=== PATIENT | female | born 1960 | race Caucasian/White ===

== ENCOUNTER 2017-03-18 17:32 | Observation (INO) ==
[2017-03-18] MEDS ORDERED: 0.9 % Sodium Chloride 1,000 ML IVC ONE (19:34)
--- NOTE | 2017-03-18 19:39 | Emergency Department Note ---
Disposition Clinical Impression: Intoxication, Suicidal ideation Disposition: Admitted As Inpatient Condition: Critical Time of Disposition: 21:17 General Adult HPI - General Chief complaint: ED General Medical Stated complaint: Not feeling well Time Seen by Provider: 03/18/17 19:29 Source: patient, EMS Limitations: no limitations Nursing Notes Reviewed: Yes Vital Signs Reviewed: Yes - History of Present Illness HPI Narrative: Ms. Pineda, 57-year-old female, arrives from home via EMS with chief complaint of, "not feeling well." When asked what brought her to the emergency department patient repeats, "I am not feeling well." She arrived by EMS. When asked, patient states that she called EMS. ROS: Denies nausea, vomiting, fever, chills, chest pains, back pains, palpitations, abdominal pains, fatigue, weakness, trauma, dizziness, confusion, changes in vision. Admits to depression Patient admits that she drank a fifth of vodka today and wishes she could be sick. As she opens up, patient says she feels sad with loss of interest in friends and hobbies. She has been sleeping excessively. She denies suicidality or homicidality. States that she has a seven-year history of alcoholism. Denies other substances. Denies tobacco dependence. Patient notes she sees a therapist in [place] for depression. PMH: Hypertension, depression, alcoholism Pain Scale: 0 - Related Data Home Medications Medication Instructions Recorded Confirmed Acamprosate Calcium 333 mg PO TID 07/30/16 03/18/17 FLUoxetine HCl [Prozac] 60 mg PO DAILY 07/30/16 03/18/17 Gabapentin [Neurontin] 600 mg PO TID 07/30/16 03/18/17 Losartan/Hydrochlorothiazide 1 each PO DAILY 07/30/16 03/18/17 [Hyzaar 100-25 Tablet] Sulindac 150 mg PO BID PRN 07/30/16 03/18/17 Tizanidine HCl [Zanaflex] 4 mg PO TID PRN 07/30/16 03/18/17 cloNIDine HCl [Clonidine HCl] 0.2 mg PO BID 07/30/16 03/18/17 Albuterol Sulfate [Albuterol 2 puff IH Q6H PRN 03/18/17 03/18/17 Inhaler] Metoprolol [Lopressor] 25 mg PO BID 03/18/17 03/18/17 Zolmitriptan [Zomig] 5 mg PO DAILY PRN 03/18/17 03/18/17 hydrOXYzine pamoate [HydrOXYzine 50 mg PO QID PRN 03/18/17 03/18/17 Pamoate] Allergies Allergy/AdvReac Type Severity Reaction Status Date / Time Sulfa (Sulfonamide Allergy Hives Verified 03/18/17 17:38 Antibiotics) All systems ED: reviewed and negative except as stated. Past Medical History - Past Medical History Medical history: Reports: arthritis, hypertension, other Surgical history: Reports: appendectomy, other Psychiatric history: Reports: anxiety, depression [employer] history: Reports: no [employer] history - Social History Smoking Status: Current every day smoker Smokeless Tobacco Status: No Alcohol use: Reports: none Drug use: Reports: none Physical Exam Vital Signs Reviewed General: Patient is alert, oriented, and in no acute respiratory distress but is in mild emotional distress-she keeps her eyes closed and is crying. Appears well. HEENT: No facial asymmetry. Head is normocephalic and atraumatic. PERRLA, EOMI. oral mucosa moist. Trachea midline. Cardiovascular: Heart regular rate and rhythm without clicks, rubs, gallops, or murmurs. No JVD. PMI nondisplaced. Respiratory: Symmetric chest rise with poor respiratory effort. Bilateral breath sounds are clear without wheezing, crackles, or rhonchi. Abdomen: Obese. Bowel sounds present normoactive x-4 quadrants. Abdomen is soft, nondistended, and nontender. No organomegaly noted. Psych: Patient's affect is appropriate for situation. - General Limitations: no limitations General appearance: alert, in no apparent distress - Head Head exam: atraumatic, normocephalic - Chest Chest inspection: Present: normal inspection, symmetric chest wall rise - Respiratory Respiratory exam: Present: normal lung sounds bilaterally. Absent: respiratory distress, wheezes - Cardiovascular Cardiovascular exam: Present: regular rate, normal rhythm, normal heart sounds - Abdominal Exam Abdominal exam: Present: soft, Non-Tender, normal bowel sounds - Extremities Exam Extremities exam: Present: normal inspection, full ROM - Back Exam Back exam: Present: normal inspection. Absent: CVA tenderness (R), CVA tenderness (L) - Neurological Exam Neurological exam: Present: alert, oriented X3. Absent: motor sensory deficit - Psychiatric Psychiatric exam: Present: suicidal ideation - Skin Skin exam: Present: warm, dry, intact, normal color. Absent: cyanosis, diaphoresis Course Course Narrative: Patient initially placed in room 21. Have requested patient is moved to more appropriate for potential psychiatric patient. 19:54 Spoke with nursing. Patient admitted to nursing that she is sad, lonely, depressed, does not want to live. EtOH elevated at 330. Patient is able to self ambulate to the restroom without ataxia. Spoke with one day who will not see the patient until she is medically cleared; until her EtOH is below the limits. Spoke with admitting hospitalist, Dr. An, who agrees to accept the patient for continued monitoring. Vital Signs Temperature 97.4 F L 03/18/17 17:38 Pulse Rate 80 03/18/17 17:38 Respiratory Rate 15 03/18/17 17:38 Blood Pressure 130/74 03/18/17 17:38 O2 Sat by Pulse Oximetry 94 03/18/17 17:38 Temperature 97.4 F L 03/18/17 17:38 Pulse Rate 80 03/18/17 17:38 Respiratory Rate 15 03/18/17 17:38 Blood Pressure 130/74 03/18/17 17:38 O2 Sat by Pulse Oximetry 94 03/18/17 17:38 Oxygen Delivery Oxygen Delivery Room Air Medical Decision Making - Lab Data Lab results reviewed: Yes I reviewed the patient's lab results. Result diagrams: 03/18/17 19:42 03/18/17 19:42 Lab Results 03/18/17 03/18/17 03/18/17 Range/Units 19:42 19:42 19:54 WBC 6.5 (4.3-11.1) K/mcL RBC 4.99 H (3.82-4.97) M/mcL Hgb 15.6 H (11.5-15.4) g/dL Hct 45.8 H (35.3-44.9) % MCV 91.8 (83.0-100.0) fL MCH 31.3 (28.0-33.3) pg MCHC 34.1 (31.6-35.5) g/dL RDW 14.4 (11.5-14.5) % Plt Count 373 (140-400) K/mcL MPV 8.7 L (9.4-12.4) fL Immature Gran % 0.2 (0-4) % Seg Neutrophils % 75.0 % Lymphocytes % 21.6 % Monocytes % 2.3 % Eosinophils % 0.0 % Basophils % 0.9 % Neutrophils # 4.9 (1.6-8.9) K/mcL Lymphocytes # 1.4 (0.6-4.6) K/mcL Monocytes # 0.2 (0.0-1.3) K/mcL Eosinophils # 0.0 (0.0-0.6) K/mcL Basophils # 0.1 (0.0-0.2) K/mcL Sodium 137 (136-145) mEq/L Potassium 4.2 (3.5-4.5) mEq/L Chloride 96 L (98-109) mEq/L Carbon Dioxide 19 (19-29) mEq/L BUN 29 H (7-20) mg/dL Creatinine 1.28 H (0.57-1.11) mg/dL Est GFR ( Amer) 52 L (> 60) Est GFR (Non-Af Amer) 43 L (> 60) BUN/Creatinine Ratio 23 (6-26) Glucose 67 L (70-99) mg/dL POC Glucose 65 (58-89) Calculated Osmolality 288 (280-300) Calcium 9.4 (8.6-10.8) mg/dL Total Bilirubin 0.4 (0.2-1.2) mg/dL Direct Bilirubin 0.2 (0.0-0.5) mg/dL Indirect Bilirubin 0.2 (0.0-1.2) mg/dL AST 36 H (5-34) Units/L ALT 29 (0-55) Units/L Alkaline Phosphatase 88 (38-126) Units/L Serum Total Protein 8.9 H (6.0-8.3) g/dL Albumin 4.1 (3.5-5.0) g/dL Globulin 4.8 H (2.4-3.5) g/dL Albumin/Globulin Ratio 0.9 L (1.1-2.2) Urine Color (Yellow) Urine Clarity (Clear) Urine pH (5.0-8.0) pH Units Ur Specific Preston (1.010-1.025) Urine Protein (Neg-Trace) mg/dL Urine Glucose (UA) (Normal) mg/dL Urine Ketones (Negative) mg/dL Urine Blood (Negative) Urine Nitrite (Negative) Urine Bilirubin (Negative) Urine Urobilinogen (Normal) mg/dL Ur Leukocyte Esterase (Negative) Urine Microscopic RBC (0-3) per hpf Urine Microscopic WBC (0-3) per hpf Ur Squamous Epith Cells (None-Few) per lpf Urine Bacteria (None-Few) per hpf Hyaline Casts (None-Few) per lpf Urine Test (Negative) Salicylates < 5.0 L (15-30) mg/dL Urine Opiates Screen (Gihvmq=327) ng/mL Acetaminophen < 1.0 L (10-30) mcg/mL Ur Barbiturates Screen (Evitmd=546) ng/mL Ur Phencyclidine Scrn (Cutoff=25) ng/mL Ur Amphetamines Screen (Jnpghl=9489) ng/mL U Benzodiazepines Scrn (Ifthkk=944) ng/mL Urine Cocaine Screen (Cutoff= 300) ng/mL U Marijuana (THC) Screen (Cutoff = 50) ng/mL Ethyl Alcohol 330 H (0-10) mg/dL 03/18/17 03/18/17 03/18/17 Range/Units 20:02 20:02 20:02 WBC (4.3-11.1) K/mcL RBC (3.82-4.97) M/mcL Hgb (11.5-15.4) g/dL Hct (35.3-44.9) % MCV (83.0-100.0) fL MCH (28.0-33.3) pg MCHC (31.6-35.5) g/dL RDW (11.5-14.5) % Plt Count (140-400) K/mcL MPV (9.4-12.4) fL Immature Gran % (0-4) % Seg Neutrophils % % Lymphocytes % % Monocytes % % Eosinophils % % Basophils % % Neutrophils # (1.6-8.9) K/mcL Lymphocytes # (0.6-4.6) K/mcL Monocytes # (0.0-1.3) K/mcL Eosinophils # (0.0-0.6) K/mcL Basophils # (0.0-0.2) K/mcL Sodium (136-145) mEq/L Potassium (3.5-4.5) mEq/L Chloride (98-109) mEq/L Carbon Dioxide (19-29) mEq/L BUN (7-20) mg/dL Creatinine (0.57-1.11) mg/dL Est GFR ( Amer) (> 60) Est GFR (Non-Af Amer) (> 60) BUN/Creatinine Ratio (6-26) Glucose (70-99) mg/dL POC Glucose (58-89) Calculated Osmolality (280-300) Calcium (8.6-10.8) mg/dL Total Bilirubin (0.2-1.2) mg/dL Direct Bilirubin (0.0-0.5) mg/dL Indirect Bilirubin (0.0-1.2) mg/dL AST (5-34) Units/L ALT (0-55) Units/L Alkaline Phosphatase (38-126) Units/L Serum Total Protein (6.0-8.3) g/dL Albumin (3.5-5.0) g/dL Globulin (2.4-3.5) g/dL Albumin/Globulin Ratio (1.1-2.2) Urine Color Yellow (Yellow) Urine Clarity Cloudy A (Clear) Urine pH 5.5 (5.0-8.0) pH Units Ur Specific Preston 1.017 (1.010-1.025) Urine Protein Negative (Neg-Trace) mg/dL Urine Glucose (UA) Normal (Normal) mg/dL Urine Ketones 15 H (Negative) mg/dL Urine Blood Trace H (Negative) Urine Nitrite Negative (Negative) Urine Bilirubin Negative (Negative) Urine Urobilinogen Normal (Normal) mg/dL Ur Leukocyte Esterase Negative (Negative) Urine Microscopic RBC 5-15 H (0-3) per hpf Urine Microscopic WBC 0-3 (0-3) per hpf Ur Squamous Epith Cells Many H (None-Few) per lpf Urine Bacteria None Seen (None-Few) per hpf Hyaline Casts None Seen (None-Few) per lpf Urine Test Negative (Negative) Salicylates (15-30) mg/dL Urine Opiates Screen Negative (Pmjemf=484) ng/mL Acetaminophen (10-30) mcg/mL Ur Barbiturates Screen Negative (Mszxkj=693) ng/mL Ur Phencyclidine Scrn Negative (Cutoff=25) ng/mL Ur Amphetamines Screen Negative (Peffec=3225) ng/mL U Benzodiazepines Scrn Negative (Dmohby=004) ng/mL Urine Cocaine Screen Negative (Cutoff= 300) ng/mL U Marijuana (THC) Screen Negative (Cutoff = 50) ng/mL Ethyl Alcohol (0-10) mg/dL Attestation Statement - Attestation Attestation: I, Alexandr Dior MD, personally evaluated this patient and discussed their management with the resident physician. I reviewed the resident's note and agree with the documented findings, medical decision making, and plan of care. 57-year-old female presents to the emergency department with a complaint of just not feeling well. No specific medical complaints. Patient admits to drinking a fifth of vodka today. She admits to drinking alcohol daily and states that she is an alcoholic. She also later admitted to filling suicidal and just wants to . On examination patient is a well-developed well-nourished female in no acute distress. She is alert and oriented 3. There is no cyanosis or diaphoresis. Breath sounds are clear and equal bilaterally. Heart regular rate and rhythm. Abdomen soft and nontender with normal bowel sounds. No gross focal neurological deficits. Labs reviewed. EtOH 330. The hospitalist, Dr. Velasquez, was consulted and accepted admission of the patient.
[2017-03-18 19:58] LABS: Basophils # 0.1 K/mcL (0.0-0.2); Basophils % 0.9 %; Hematocrit 45.8 % (35.3-44.9); Hemoglobin 15.6 g/dL (11.5-15.4); Immature Granulocytes % 0.2 % (0-4); Lymphocytes # 1.4 K/mcL (0.6-4.6); Lymphocytes % 21.6 %; Mean Corpuscular HGB Conc 34.1 g/dL (31.6-35.5); Mean Corpuscular Hemoglobin 31.3 pg (28.0-33.3); Mean Corpuscular Volume 91.8 fL (83.0-100.0); Mean Platelet Volume 8.7 fL (9.4-12.4); Monocytes # 0.2 K/mcL (0.0-1.3); Monocytes % 2.3 %; Neutrophils # 4.9 K/mcL (1.6-8.9); Platelet Count 373 K/mcL (140-400); Red Blood Count 4.99 M/mcL (3.82-4.97); Red Cell Distribution Width 14.4 % (11.5-14.5)
[2017-03-18 20:12] LABS: Alanine Aminotransferase 29 Units/L (0-55); Albumin 4.1 g/dL (3.5-5.0); Albumin/Globulin Ratio 0.9 (1.1-2.2); Alkaline Phosphatase 88 Units/L (38-126); Aspartate Amino Transferase 36 Units/L (5-34); BUN/Creatinine Ratio 23 (6-26); Bilirubin,Direct 0.2 mg/dL (0.0-0.5); Bilirubin,Indirect 0.2 mg/dL (0.0-1.2); Bilirubin,Total 0.4 mg/dL (0.2-1.2); Blood Urea Nitrogen 29 mg/dL (7-20); Calcium 9.4 mg/dL (8.6-10.8); Carbon Dioxide 19 mEq/L (19-29); Chloride 96 mEq/L (98-109); Ethanol 330 mg/dL (0-10); Globulin 4.8 g/dL (2.4-3.5); Glucose 67 mg/dL (70-99); Osmolality,Calculated 288 (280-300); Potassium 4.2 mEq/L (3.5-4.5); Sodium 137 mEq/L (136-145); Total Protein 8.9 g/dL (6.0-8.3); eGFR For African Americans 52 (> 60); eGFR For Non-African Americans 43 (> 60)
[2017-03-18 20:19] LABS: Acetaminophen < 1.0 mcg/mL (10-30); Salicylate < 5.0 mg/dL (15-30)
[2017-03-18 20:19] LABS: Bilirubin,Urine Negative (Negative); Blood,Urine Trace (Negative); Clarity,Urine Cloudy (Clear); Color,Urine Yellow (Yellow); Glucose,Urine (UA) Normal (Normal); Ketones,Urine 15 mg/dL (Negative); Leukocyte Esterase,Urine Negative (Negative); Nitrite,Urine Negative (Negative); PH,Urine 5.5 pH Units (5.0-8.0); Protein,Urine Negative (Neg-Trace); Specific Gravity,Urine 1.017 (1.010-1.025); Urobilinogen,Urine Normal (Normal)
[2017-03-18 20:20] LABS: Bacteria,Urine None Seen per hpf (None-Few); Hyaline Casts,Urine None Seen per lpf (None-Few); Squamous Epithelial Cell,Urine Many per lpf (None-Few); WBC,Urine 0-3 per hpf (0-3)
[2017-03-18 20:26] LABS: Amphetamine Screen,Urine Negative ng/mL (Cutoff=1000); Barbiturate Screen,Urine Negative ng/mL (Cutoff=200); Benzodiazepines Screen,Urine Negative ng/mL (Cutoff=200); Cannabinoid Screen,Urine Negative ng/mL (Cutoff = 50); Cocaine Screen,Urine Negative ng/mL (Cutoff= 300); Opiate Screen,Urine Negative ng/mL (Cutoff=300); Phencyclidine Screen,Urine Negative ng/mL (Cutoff=25)
[2017-03-18] MEDS ORDERED: *HR* Dextrose 50 % in Water (Syg) 50 ML SYRINGE IVP ONE (21:15)
[2017-03-18] MEDS: Ondansetron 4 MG/2 ML VIAL IVP ONE ×2 (22:04→22:07)
[2017-03-18] MEDS ORDERED: Ondansetron 4 MG/2 ML VIAL ONE (22:04)
--- NOTE | 2017-03-18 22:19 | Internal Med History&Physical ---
Date of Encounter: 03/18/17 Time of Encounter: 22:18 Assessment and Plan (1) Intoxication Current visit: Yes Status: Acute patient with a history of depression who sees a counselor on the outpatient and a heavy alcohol use history comes in with vague symptoms and found to be intoxicated, she is being admitted for monitoring, she denies any prior admissions for alcohol withdrawal we will monitor, replace electrolytes and monitor for withdrawal (2) Depression Current visit: Yes Status: Chronic she is depressed and this may be driving her drinking habit, she currently has no suicidal or homicidal ideation, we will consider morning discharge home if stable Qualifiers: Depression Type: major depressive disorder Major depression recurrence: recurrent Active/Remission status: currently active Major depression episode severity: moderate Qualified Code(s): F33.1 - Major depressive disorder, recurrent, moderate (3) Migraine Current visit: Yes Status: Chronic will continue her home medications Qualifiers: Migraine type: without aura Status migrainosus presence: without status migrainosus Intractability: not intractable Qualified Code(s): G43.009 - Migraine without aura, not intractable, without status migrainosus (4) HTN (hypertension) Current visit: Yes Status: Chronic will continue her home medications with BP monitoring Qualifiers: Hypertension type: essential hypertension Qualified Code(s): I10 - Essential (primary) hypertension (5) Chronic low back pain Current visit: Yes Status: Chronic will continue home pain regimen Qualifiers: Back pain laterality: midline Sciatica presence: without sciatica Qualified Code(s): M54.5 - Low back pain; G89.29 - Other chronic pain (6) CKD (chronic kidney disease) stage 3, GFR 30-59 ml/min Current visit: Yes Status: Chronic seems to be stable, will avoid nephrotoxins, renally dose all medications and follow [facility]PM Internal Medicine - H&P: HPI Chief complaint: feeling unwell Admitted From: Emergency Dept Plans for Post Hospital Care: Home History of present illness: Ms. Pineda is a 57 year old female with a history of alcohol abuse ongoing for about 10 years now was brought in via [facility] to the ER of [place]. She reports that she was drinking today and felt depressed, felt sick to her stomach with nausea but could not vomit. She reports that she has lost interest in things she previously enjoyed and that alcohol gives her some form of escape. She was in this state today until she called [facility] because she just felt "unwell". She denies any prior withdrawal symptoms, no seizures, she reports that she can go for about 10 days without drinking alcohol and have no problems. She denies suicidal or homicidal ideation. Past Med Surg Social Fam HX - Past Medical History Medical history: arthritis, asthma, hypertension, migraine, renal disease (CKD stage 3), other (cervical spinal stenosis, post laminectomy syndrome, carpal tunnel syndrome, chronic pain syndrome, osteoarthritis) Psychiatric history: anxiety, depression - Past Surgical History Surgical History: appendectomy, other (lumbar laminectomy with fusion) - Social History Smoking Status: Current every day smoker Packs per day: 1ppd for >40 years and does not plan to quit Smokeless Tobacco Status: No Alcohol use: none, heavy (about a 5th of Vodka daily for >10 years now) Drug use: none 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[place]) Current living situation: Home - Independent Activity Level: Independent ambulation Additional social history: she is with no children and lives alone on a [address] property - Family History Mother Living Status: Still Living Hx Family Medical Disorders: Yes (HTN) Father Living Status: Hx Family Cardiac Disorders: Yes Hx Family Medical Disorders: Yes (HTN) - Additional Family History Additional family history: father is , he had HTN/CHF/spinal canal stenosis, mother has HTN Internal Medicine - H&P: Meds Acamprosate Calcium 333 mg PO TID 07/30/16 [History] FLUoxetine HCl [Prozac] 60 mg PO DAILY 07/30/16 [History] Gabapentin [Neurontin] 600 mg PO TID 07/30/16 [History] Losartan/Hydrochlorothiazide [Hyzaar 100-25 Tablet] 1 each PO DAILY 07/30/16 [ History] Sulindac 150 mg PO BID PRN 07/30/16 [History] Tizanidine HCl [Zanaflex] 4 mg PO TID PRN 07/30/16 [History] cloNIDine HCl [Clonidine HCl] 0.2 mg PO BID 07/30/16 [History] Albuterol Sulfate [Albuterol Inhaler] 2 puff IH Q6H PRN 03/18/17 [History] Metoprolol [Lopressor] 25 mg PO BID 03/18/17 [History] Zolmitriptan [Zomig] 5 mg PO DAILY PRN 03/18/17 [History] hydrOXYzine pamoate [HydrOXYzine Pamoate] 50 mg PO QID PRN 03/18/17 [History] Allergies Sulfa (Sulfonamide Antibiotics) Allergy (Verified 03/18/17 17:38) Hives All Systems PM: A 10-system review of systems was performed and is negative for pertinent findings except as documented above in the HPI. - Constitutional Vitals: Temp Pulse Resp BP Pulse Ox 97.4 F L 99 20 136/78 98 03/18/17 17:38 03/18/17 21:47 03/18/17 21:49 03/18/17 21:49 03/18/17 21:47 PHYSICAL EXAMINATION: GENERAL: Adult female, lying in bed with no sign of pain or distress, Alert, face if flushed HEENT: NC/AT, EOMI, PERRLA, anicteric sclera, normal conjunctiva, supple, clear nares, moist mucous membranes, RESP: lungs are clear to auscultation bilaterally, no crackles or wheeze noted CARDIO: normal heart sounds with no murmur, no JVD, GI: Soft, full, no tenderness, no organomegaly felt, normal bowel sounds heard MUSCULOSKELETAL: normal findings with no cyanosis or deformities NEUROLOGIC: CN 2-12 intact grossly. No motor/sensory deficit appreciated, PSYCHIATRY: AAO x 3, mood is depressed SKIN: no rash except for facial flushing Internal Med - H&P Results - Labs CBC & Chem 7: 03/18/17 19:42 03/18/17 19:42 - Diagnostic Studies Chest x-ray Status: image reviewed by me
[2017-03-18] MEDS ORDERED: Naloxone 0.4 MG/ML INJ IVP PRN (23:20)
[2017-03-18] MEDS ORDERED: Ondansetron 4 MG/2 ML VIAL IVP PRN (23:20)
[2017-03-18] MEDS ORDERED: hydrOXYzine pamoate 25 MG CAPSULE PO PRN (23:21)
[2017-03-18] MEDS ORDERED: tiZANidine 4 MG TABLET PO PRN (23:21)
[2017-03-18] MEDS ORDERED: ZOMIG 5MG PO PRN (23:21)
[2017-03-18] MEDS: Gabapentin 300 MG CAPSULE PO SCH (23:46)
[2017-03-18] MEDS: cloNIDine HCl 0.1 MG TABLET PO SCH (23:46)
[2017-03-18] MEDS: ACAMPROSATE CALCIUM 333 MG PO SCH (23:46)
[2017-03-19 05:09] LABS: Basophils # 0.1 K/mcL (0.0-0.2); Basophils % 0.7 %; Hematocrit 36.4 % (35.3-44.9); Immature Granulocytes % 0.3 % (0-4); Lymphocytes # 1.7 K/mcL (0.6-4.6); Lymphocytes % 22.7 %; Mean Corpuscular HGB Conc 34.3 g/dL (31.6-35.5); Mean Corpuscular Hemoglobin 31.5 pg (28.0-33.3); Mean Corpuscular Volume 91.7 fL (83.0-100.0); Mean Platelet Volume 8.8 fL (9.4-12.4); Monocytes # 0.7 K/mcL (0.0-1.3); Monocytes % 9.1 %; Neutrophils # 5.1 K/mcL (1.6-8.9); Platelet Count 292 K/mcL (140-400); Red Blood Count 3.97 M/mcL (3.82-4.97); Red Cell Distribution Width 14.4 % (11.5-14.5); Segmented Neutrophils % 67.2 %
[2017-03-19 05:18] LABS: BUN/Creatinine Ratio 23 (6-26); Blood Urea Nitrogen 23 mg/dL (7-20); Calcium 8.5 mg/dL (8.6-10.8); Carbon Dioxide 20 mEq/L (19-29); Chloride 103 mEq/L (98-109); Glucose 96 mg/dL (70-99); Magnesium 1.8 mg/dL (1.6-2.6); Osmolality,Calculated 286 (280-300); Phosphorous 2.8 mg/dL (2.3-4.7); Potassium 4.3 mEq/L (3.5-4.5); Sodium 136 mEq/L (136-145); eGFR For African Americans > 60 (> 60); eGFR For Non-African Americans 55 (> 60)
[2017-03-19 05:27] LABS: Hemoglobin 12.5 g/dL (11.5-15.4)
[2017-03-19 07:33] VITALS: BP 158/90
[2017-03-19] MEDS: ACAMPROSATE CALCIUM 333 MG PO SCH (08:54)
[2017-03-19] MEDS: cloNIDine HCl 0.1 MG TABLET PO SCH (08:54)
[2017-03-19] MEDS: Gabapentin 300 MG CAPSULE PO SCH (08:54)
[2017-03-19] MEDS ORDERED: Losartan/HCTZ 50-12.5 TABLET PO SCH (09:00)
[2017-03-19] MEDS ORDERED: FLUoxetine 20 MG CAPSULE PO SCH (09:00)
--- NOTE | 2017-03-19 09:47 | Discharge Summary ---
Date of Encounter: 03/19/17 Time of Encounter: 09:40 - Discharge Diagnosis (1) Intoxication Priority: Primary Status: Acute Comments: Patient states that she drinks at least 750 mL's of vodka or tequila daily for the last 10 years. She said that she was drinking a normal amount yesterday and said that she "did not feel right". She was actually unable to quantify this statement and could not describe any specific feeling or pain that she was having. She said that she had not eaten all day when she arrived at the emergency department her blood sugar was 66. She states that she has not interested in any resources to stop drinking at this time. (2) Chronic low back pain Priority: Secondary Status: Chronic Comments: Chronic. Continue home medications. Qualifiers: Back pain laterality: midline Sciatica presence: without sciatica Qualified Code(s): M54.5 - Low back pain; G89.29 - Other chronic pain (3) HTN (hypertension) Priority: Secondary Status: Chronic Comments: Chronic. Continue home medications. Well controlled in inpatient setting. Qualifiers: Hypertension type: essential hypertension Qualified Code(s): I10 - Essential (primary) hypertension (4) Migraine Priority: Secondary Status: Chronic Comments: Chronic. Continue home medications. Qualifiers: Migraine type: without aura Status migrainosus presence: without status migrainosus Intractability: not intractable Qualified Code(s): G43.009 - Migraine without aura, not intractable, without status migrainosus (5) Depression Priority: Secondary Status: Chronic Comments: Chronic. Continue home medications. Patient states that she does see a counselor weekly at [facility] in [place]. She denies needing any additional assistance or resources. Qualifiers: Depression Type: major depressive disorder Major depression recurrence: recurrent Active/Remission status: currently active Major depression episode severity: moderate Qualified Code(s): F33.1 - Major depressive disorder, recurrent, moderate (6) CKD (chronic kidney disease) stage 3, GFR 30-59 ml/min Priority: Secondary Status: Chronic Comments: BUN 23, creatinine 1.02, GFR 55. Stable and improved Avoid nephrotoxins and NSAIDs (7) Tobacco abuse Priority: Secondary Status: Chronic Comments: Patient smokes approximately 1 pack a day for the last 40 years. She is not interested in smoking, and she is not interested in any smoking cessation materials or tools at this time. - Discharge Medications Home Medications: Acamprosate Calcium 333 mg PO TID 07/30/16 [History] FLUoxetine HCl [Prozac] 60 mg PO DAILY 07/30/16 [History] Gabapentin [Neurontin] 600 mg PO TID 07/30/16 [History] Losartan/Hydrochlorothiazide [Hyzaar 100-25 Tablet] 1 each PO DAILY 07/30/16 [ History] Sulindac 150 mg PO BID PRN 07/30/16 [History] Tizanidine HCl [Zanaflex] 4 mg PO TID PRN 07/30/16 [History] cloNIDine HCl [Clonidine HCl] 0.2 mg PO BID 07/30/16 [History] Albuterol Sulfate [Albuterol Inhaler] 2 puff IH Q6H PRN 03/18/17 [History] Metoprolol [Lopressor] 25 mg PO BID 03/18/17 [History] Zolmitriptan [Zomig] 5 mg PO DAILY PRN 03/18/17 [History] hydrOXYzine pamoate [HydrOXYzine Pamoate] 50 mg PO QID PRN 03/18/17 [History] Allergies/Adverse Reactions: Allergies Sulfa (Sulfonamide Antibiotics) Allergy (Verified 03/18/17 17:38) Hives Date of admission: 03/18/17 21:08 Primary care physician: PCP NO Discharging clinician: Graciela Livingston Anticipated date of discharge: 03/19/17 - Patient Status Disposition: Home, Self-Care Condition: Good Functional capacity at discharge: independent ambulation Overall status at discharge: patient is back to baseline - Discharge Instructions Forms: ED Satisfaction Letter, Work/School Release Additional Instructions: Please follow up with your primary care physician within the next week to 10 days for a follow up. Resume your home medications Return to the ER as needed for any new problems or concerns. - Diet and Activity Activity: increase activity as tolerated Diet: advance to your usual diet Interval History: Mrs. Pacheco is a 57-year-old female with history of alcohol abuse, tobacco abuse, depression, migraine, hypertension and chronic kidney disease stage III. She was admitted from home by squad to the emergency department last night. She said that she had been drinking as per her usual at home and said that she began not feeling well. She was unable to quantify that statement with any indication as to whether her complaints were somatic or anxiety/depression. She denied any nausea, vomiting, chest pain, shortness of breath, palpitations, syncopal episodes, abdominal pain, dizziness, confusion, headache. Patient states that she had not eaten all day and had drank her normal amount of approximately 700 mL's of vodka. When she arrived at the emergency department her blood sugar was 67. Patient drinks 750 mL's of either vodka or tequila daily for the last 10 years. In the ER attending's notes it states 7 years, however patient states that her 8 years ago and she had been drinking for years prior to that. She is not interested in any alcohol treatment programs, nor is she interested any smoking cessation materials or tools. She sees a counselor weekly in [place] at [facility]. She denies any need for any other assistance counseling etc. Labs are stable. Vital signs have been stable. Patient is alert and oriented, speech is clear, gait is steady. Patient states that she has multiple cats, dogs, and sugar gliders at home that she needs to feed and she also needs to be to work at 11 AM. Patient's mother will be picking her up. Patient is stable and appropriate for discharge. Hospital course: Ms. Pineda is a 57 year old female Time spent discussing smoking cessation with patient: 3 to 10 minutes - Time Spent with Patient Total time spent providing and/or coordinating discharge services: Less than 30 minutes - Constitutional Vitals: Temp Pulse Resp BP Pulse Ox 98.2 F 78 16 158/90 96 03/19/17 07:33 03/19/17 07:33 03/19/17 07:33 03/19/17 07:33 03/19/17 07:33 General appearance: Present: cooperative, A&O X 3, pleasant, no acute distress, answers questions appropriately - Head Head exam: Present: normal inspection - Eye Eye exam: Present: normal appearance, conjuntiva pink - ENT ENT exam: Present: mucous membranes moist, normal exam - Neck Neck exam general surgery: Present: normal inspection. Absent: lymphadenopathy , tenderness - Respiratory Respiratory exam: Present: CTAB. Absent: rales, rhonchi, stridor, wheezes - Cardiovascular Cardiovascular exam: Present: RRR, +S1, +S2. Absent: clicks, diastolic murmur, gallop, systolic murmur - Expanded Cardiovascular Exam Peripheral pulses: 2+: Dorsalis Pedis (L) PM, Dorsalis Pedis (R) PM - GI/Abdominal GI/Abdominal exam: Present: normal bowel sounds, soft. Absent: distended, firm , hepatomegaly, tenderness - Extremities Exam Extremities exam: Present: normal inspection, warm, radial pulses palpable and symetrical. Absent: pedal edema, tenderness - Neurological Exam Neurological exam: Present: alert, oriented X3, no focal deficits, strengths equal and symetr throughout. Absent: facial droop, speech deficit
== END 2017-03-19 11:02 | disposition home or self-care (01) ==
LOC: 3BNU 17:32 → EMEROO 17:32 → 3BNU 22:08
PROVIDERS: ADMIT Internal Medicine; ATTEND Registered Nurse